=== PATIENT | female | born 1955 | race Caucasian/White ===

== ENCOUNTER 2017-10-21 03:11 | Emergency (ER) | payer MEDICAID ==
[~2017-10-21] VITALS: Ht 165.1 cm; Wt 68.0 kg
[2017-10-21] MEDS ORDERED: IBUPROFEN 400MG TABLET PO ONE (06:30)
[2017-10-21 07:43] VITALS: BP 143/60
== END 2017-10-21 07:44 | disposition home or self-care (01) ==
LOC: ER 03:11
DX: M79.601 Pain in right arm (principal); M79.1 Myalgia
CPT/HCPCS: 73030; 73060; 99284